=== PATIENT | male | born 1985 | race Hispanic/Latino ===

== ENCOUNTER 2020-06-14 22:46 | Emergency (ER) | payer OTHER, SELFPAY ==
[2020-06-14 22:52] VITALS: BP 154/92; PULSE 93; RESP 16; TEMP 36.6; O2SAT 99; BMI 27.9
[2020-06-14] MEDS: PROPARACAINE 0.5% OPHTH SOL 1 DROPS EYE-LEFT (22:59)
[2020-06-14] MEDS: FLUORESCEIN 1 MG STRIP EYE-BOTH (22:59)
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
[2020-06-14] MEDS: ERYTHROMYCIN OPHTH 1 GM OINT 1 APPLIC EYE-LEFT (23:37)
== END 2020-06-14 23:40 | disposition home or self-care (01) ==
PROVIDERS: Emergency Provider Emergency Medicine
DX: S05.02XA Injury of conjunctiva and corneal abrasion without foreign body, left eye, initial encounter (principal)
CPT/HCPCS: 99282

== ENCOUNTER 2021-07-13 15:51 | Emergency (ER) | payer OTHER, SELFPAY ==
[2021-07-13 16:08] VITALS: BP 131/74; PULSE 71; RESP 18; TEMP 36.3; O2SAT 99; BMI 30.1
[2021-07-13] MEDS: TET,DIPH,PERTUSS(ACELL),VAC/PF 0.5 ML SYRINGE IM (18:13)
[2021-07-13] MEDS: KETOROLAC 30 MG/ML VIAL IM (18:14)
[2021-07-13] MEDS: LIDO 1%/SOD BICARB 8.4% (10ML) 10 ML SYRINGE INJ (18:15)
[2021-07-13] MEDS: cephALEXin 250 MG CAPSULE 500 MG PO (19:09)
[2021-07-13] MEDS: TRAMADOL 50 MG TABLET PO (19:09)
--- NOTE | 2021-07-13 19:22 | ED.SKABFB ---
HPI - Skin/Abscess/Foreign Bdy <VAZQUEZ Parisi - Last Filed: 07/13/21 22:10> General Chief complaint: Skin/Abscess/Foreign Body Stated complaint: inside rt thigh and up pain, possible boil rupture Time Seen by Provider: 07/13/21 17:54 Source: patient Mode of arrival: Ambulatory History of Present Illness HPI narrative: 35-year-old male presents to emergency department for 3 days of right thigh skin lesion which started as an ingrown hair. He reports that it is being getting more swollen and red, started draining earlier today without any intervention, he has taken ibuprofen for this, he is allergic to Tylenol. He does not know when his last tetanus was. He denies any recent fever, nausea or vomiting, weakness, numbness or tingling in the lower extremities. He denies any history of MRSA. Related Data Previous Rx's Medication Instructions Recorded erythromycin 5 mg/gram (0.5 %) eye 1 applictn EYE-LEFT TID #3.5 gram 06/14/20 ointment cephalexin 500 mg capsule 500 mg PO BID 10 Days #20 cap 07/13/21 tramadol 50 mg tablet 50 mg PO BID PRN #10 tab 07/13/21 Allergies Allergy/AdvReac Type Severity Reaction Status Date / Time acetaminophen Allergy Verified 06/14/20 22:52 Review of Systems <VAZQUEZ Parisi - Last Filed: 07/13/21 22:10> Review of Systems Narrative: General: denies fever, chills Head/Neck: denies headache, neck pain Eyes: denies visual changes, eye pain Cardio: denies chest pain, palpitations Respiratory: denies shortness of breath, cough GI: denies abdominal pain, nausea, vomiting, or diarrhea : denies dysuria, hematuria MSK: denies joint pain, muscle weakness Skin: denies rash, itching Neuro: denies numbness, tingling Patient History <VAZQUEZ Parisi - Last Filed: 07/13/21 22:10> Medical History Healthy adult Social History marital status: Smoking Status: Never smoker Smoking Status: Never smoker alcohol intake frequency: a few times a month Alcohol type: beer Substance Use Type: marijuana Exam <VAZQUEZ Parisi - Last Filed: 07/13/21 22:10> Narrative Exam Narrative: Independently reviewed vitals signs and nursing notes. General: Awake, alert, nontoxic, no cardiorespiratory distress Head/Neck: Atraumatic, neck full range of motion Eyes: EOMI, conjunctiva normal Nose: nares patent, no rhinorrhea Mouth/Throat: moist mucus membranes, posterior pharynx normal, no oral lesions Cardio: Regular rate and rhythm, no peripheral edema Respiratory: respirations unlabored without wheezing, stridor, or rales. No retractions. GI: Abdomen soft, nontender MSK: Moves all extremities, neurovascularly intact Skin: Right medial thigh with 2 cm x 2 cm draining abscess Normal capillary refill, no rash Neuro: Normal speech and cognition, normal gait Initial Vital Signs Initial Vital Signs: Vital Signs Temperature 97.4 F L 07/13/21 16:08 Pulse Rate 71 07/13/21 16:08 Respiratory Rate 18 07/13/21 16:08 Blood Pressure 131/74 07/13/21 16:08 Pulse Oximetry 99 07/13/21 16:08 <Joyce Castañeda MD - Last Filed: 07/14/21 07:43> Initial Vital Signs Initial Vital Signs: Vital Signs Temperature 97.4 F L 07/13/21 16:08 Pulse Rate 71 07/13/21 16:08 Respiratory Rate 18 07/13/21 16:08 Blood Pressure 131/74 07/13/21 16:08 Pulse Oximetry 99 07/13/21 16:08 Procedures <VAZQUEZ Parisi - Last Filed: 07/13/21 22:10> Abscess I/D I&D #1: Site: lower extremity Local Anesthetic: lidocaine 1% and with bicarb Amount of anesthesia used (mL): 9 Technique: incised with #11 blade Amount of fluid expressed (mL): 5 Irrigation: Yes Packing used?: plain Course <VAZQUEZ Parisi - Last Filed: 07/13/21 22:10> Orders Ordered: Discontinued Medications Cephalexin HCl (Cephalexin 250 Mg Capsule) 500 mg PO NOW ONE Stop: 07/13/21 18:43 Last Admin: 07/13/21 19:09 Dose: 500 mg Documented by: KANIKA Diphtheria/Tetanus/Acell Pertussis (Tet,Diph,Pertuss(Acell),Vac/Pf 0.5 Ml Syringe) 0.5 ml IM .ONCE ONE Stop: 07/13/21 18:13 Last Admin: 07/13/21 18:13 Dose: 0.5 ml Documented by: KANIKA Ketorolac Tromethamine (Ketorolac 30 Mg/Ml Vial) 30 mg IM NOW ONE Stop: 07/13/21 18:00 Last Admin: 07/13/21 18:14 Dose: 30 mg Documented by: KANIKA Lidocaine/Sodium Bicarbonate (Lido 1%/Sod Bicarb 8.4% (10ml) 10 Ml Syringe) 10 ml INJ NOW ONE Stop: 07/13/21 18:02 Last Admin: 07/13/21 18:15 Dose: 10 ml Documented by: KANIKA Tetanus/Diphtheria Toxoids (Tetanus Diphtheria Toxoids 0.5 Ml Vial) 0.5 ml IM .ONCE ONE Stop: 07/13/21 18:03 Last Admin: 07/13/21 18:33 Dose: Not Given Documented by: KANIKA Tramadol HCl (Tramadol 50 Mg Tablet) 50 mg PO NOW ONE Stop: 07/13/21 18:48 Last Admin: 07/13/21 19:09 Dose: 50 mg Documented by: KANIKA Vital Signs Vital signs: Vital Signs - 8 hr 07/13/21 16:08 Temperature 97.4 F L Pulse Rate 71 Respiratory Rate 18 Blood Pressure 131/74 Pulse Oximetry 99 <Joyce Castañeda MD - Last Filed: 07/14/21 07:43> Orders Ordered: Discontinued Medications Cephalexin HCl (Cephalexin 250 Mg Capsule) 500 mg PO NOW ONE Stop: 07/13/21 18:43 Last Admin: 07/13/21 19:09 Dose: 500 mg Documented by: KANIKA Diphtheria/Tetanus/Acell Pertussis (Tet,Diph,Pertuss(Acell),Vac/Pf 0.5 Ml Syringe) 0.5 ml IM .ONCE ONE Stop: 07/13/21 18:13 Last Admin: 07/13/21 18:13 Dose: 0.5 ml Documented by: KANIKA Ketorolac Tromethamine (Ketorolac 30 Mg/Ml Vial) 30 mg IM NOW ONE Stop: 07/13/21 18:00 Last Admin: 07/13/21 18:14 Dose: 30 mg Documented by: KANIKA Lidocaine/Sodium Bicarbonate (Lido 1%/Sod Bicarb 8.4% (10ml) 10 Ml Syringe) 10 ml INJ NOW ONE Stop: 07/13/21 18:02 Last Admin: 07/13/21 18:15 Dose: 10 ml Documented by: KANIKA Tetanus/Diphtheria Toxoids (Tetanus Diphtheria Toxoids 0.5 Ml Vial) 0.5 ml IM .ONCE ONE Stop: 07/13/21 18:03 Last Admin: 07/13/21 18:33 Dose: Not Given Documented by: KANIKA Tramadol HCl (Tramadol 50 Mg Tablet) 50 mg PO NOW ONE Stop: 07/13/21 18:48 Last Admin: 07/13/21 19:09 Dose: 50 mg Documented by: KANIKA Vital Signs Vital signs: Vital Signs - 8 hr 07/13/21 16:08 Temperature 97.4 F L Pulse Rate 71 Respiratory Rate 18 Blood Pressure 131/74 Pulse Oximetry 99 MDM - Skin/Abscess/Foreign Bdy <hSakila Wilkinson [facility] - Last Filed: 07/13/21 22:10> [facility] Narrative Medical decision making narrative: 35-year-old male with an already draining abscess and cellulitis of his right upper thigh presents to the emergency department with complaint of 3 days of swelling and pain at the site. Wound was already draining with granulation material coming out, drainage was serosanguinous. Cellulitis present to approximately 3 in surrounding a 1 cm x 1 cm abscess which has an erythematous base, it is also slightly raised. I and D was completed without any obvious purulence drainage. Patient had approximately 5 mL of blood loss, a 1 cm incision was made at the anal verge where the 4 mm x 4 mm opening in the abscess was located. Wound was packed with approximately 6 in of plain packing material. Patient educated on changing dressings, warm compresses, taking antibiotics, and having the packing removed in 2 days. Tetanus was updated today, wound culture was sent with granulation material. Patient is appropriate and amenable to discharge home. Vital signs are stable on repeat examination is unremarkable. Patient has been informed of results. Patient has been given strict return to ER precautions for any new or worsening symptoms. Patient understands to follow up closely with outpatient providers as instructed. Patient understands plan and agrees to discharge home. All questions and concerns answered at this time. Discharge Plan Departure Patient Disposition: Home Clinical Impression: Cellulitis Qualifiers: Site of cellulitis: extremity Site of cellulitis of extremity: upper extremity Laterality: right Qualified Code(s): L03.113 - Cellulitis of right upper limb Abscess of skin or subcutaneous tissue Qualifiers: Site of cutaneous abscess: extremity Site of cutaneous abscess of extremity: lower extremity Laterality: right Qualified Code(s): L02.415 - Cutaneous abscess of right lower limb Instructions: DI for Cellulitis -- Adult, DI for Wound Infection, DI for Skin Abscess Activity Restrictions/Additional Instructions: *You have been diagnosed with cellulitis of your right thigh with possible abscess. We placed approximately 6 in packing into your to act as a week. Please continue the warm compresses 4 times a day and return to the emergency department or the walk-in clinic if this starts getting any worse or if you have a fever. You received your 1st dose of antibiotics here, picking tech the rest of your prescription tomorrow. I feel like this should start to resolve now that has a drainage path. You need might need further debridement and drainage if this does not start to get better. *What to do: *Please continue to take your regular medications as directed. [ x] New medication prescriptions sent to your pharmacy: [[facility] ] [ ] New medication written as a paper prescription [ ] No new medications given *Please follow up with your primary care provider in 2-3 days, call for an appointment. Let them know you were seen in the Emergency Department and that we ask that you be seen in follow up. We will electronically transmit a record of today's note if your PCP is in our system *If you do not have a primary care provider please contact the [facility] Resource line at [phone]. They will ask some questions about your medical history and help get you set up with a doctor in the community. *Return to Emergency Department if you should have any new, worsening or concerning symptoms, such as [fever greater than 101F, chills, worsening pain, persistent vomiting or other bothersome symptoms] Prescriptions: New cephalexin 500 mg capsule 500 mg PO BID 10 Days Qty: 20 RF: 0 tramadol 50 mg tablet 50 mg PO BID PRN (Reason: pain) Qty: 10 RF: 0 No Action erythromycin 5 mg/gram (0.5 %) ointment 1 applictn EYE-LEFT TID Qty: 3.5 RF: 0 Stand Alone Forms: Work Release Note <Joyce Castañeda MD - Last Filed: 07/14/21 07:43> Cosign ED Attending Cosignature Attestation: I was immediately available in the department for consultation throughout this patient's visit. I agree with documentation as above. Joyce Castañeda MD
== END 2021-07-13 19:25 | disposition home or self-care (01) ==
PROVIDERS: Emergency Provider Nurse Practitioner Critical Care Medicine
DX: L03.113 Cellulitis of right upper limb (principal); L02.415 Cutaneous abscess of right lower limb; Z23 Encounter for immunization
CPT/HCPCS: 10060; 87070; 87075; 87077; 87147; 87186; 87205; 90471; 96372; 99283; 99284; 90715; J1885

== ENCOUNTER 2021-07-16 17:00 | Emergency (ER) | payer OTHER, SELFPAY ==
[2021-07-16 17:11] VITALS: BP 142/92; PULSE 71; RESP 18; TEMP 36.2; O2SAT 97; BMI 30.8
--- NOTE | 2021-07-16 18:10 | ED_ITS ---
HPI - Extremity Problem General Chief complaint: Extremity Problem,Nontraumatic Stated complaint: RIGHT LEG NEEDS CLEANED Time Seen by Provider: 07/16/21 18:07 Source: patient and family Mode of arrival: Ambulatory Limitations: no limitations History of Present Illness HPI Narrative: 35-year-old male smoker returns with a significant other and the chief complaint of needing his bandage is redressed. He had been seen and evaluated in the emergency department a few days ago and had developed a painful red bump in his medial thigh that started as a an ingrown hair and developed into what sounds like an abscess. There was an incision and drainage with minimal fluid production. It was cultured, he was started on Keflex and it was packed. He is doing quite well in the aftermath and states the pain has improv ed. He denies any systemic findings such as fever, chills nor nausea or vomiting Related Data Previous Rx's Medication Instructions Recorded erythromycin 5 mg/gram (0.5 %) eye 1 applictn EYE-LEFT TID #3.5 gram 06/14/20 ointment cephalexin 500 mg capsule 500 mg PO BID 10 Days #20 cap 07/13/21 tramadol 50 mg tablet 50 mg PO BID PRN #10 tab 07/13/21 sulfamethoxazole 800 1 tab PO BID 10 Days #20 tab 07/16/21 mg-trimethoprim 160 mg tablet (Bactrim DS) Allergies Allergy/AdvReac Type Severity Reaction Status Date / Time acetaminophen Allergy Verified 06/14/20 22:52 Review of Systems Review of Systems Narrative: GENERAL: Denies chills, fatigue, malaise, fever, sweats. HEENT: Denies sinus pain, ear pain, sore throat, difficulty swallowing, dizziness. RESPIRATORY: Denies dyspnea, cough, wheezing, hemoptysis, sputum. CARDIOVASCULAR: Denies chest pain, palpitations, orthopnea, edema, GASTROINTESTINAL: Denies nausea, vomiting, abdominal pain, diarrhea, constipation, melena. : Denies dysuria, frequency, incontinence, hematuria, urinary retention. MUSCULOSKELETAL: denies weakness, joint pain, or bony pain SKIN:see HPI NEUROLOGIC: Denies weakness, headache, numbness, change in speech, confusion, seizures, incoordination. PSYCHIATRIC: No concerning psychosocial issues. 12 point review of systems is negative except for those stated above Patient History Medical History Healthy adult Social History marital status: Smoking Status: Current some day smoker Smoking Status: Current some day smoker tobacco type: vaping alcohol intake frequency: a few times a month Alcohol type: beer Substance Use Type: does not use Exam Narrative Exam Narrative: GEN: AOx3 and in mild distress EYES: Pupils are equal, round, and reactive to light and accommodation. Extraoccular muscles are intact bilaterally. There is no subconjunctival hemorrhage or exudate. CHEST: Lungs are clear to auscultation bilaterally and free of wheezes, rales, or rhonchi. Heart rate is regular rhythm, there are no murmurs, clicks, rubs, or gallops. There is no chest wall tenderness. ABD: Abdomen is soft and nontender. There is no guarding or rebound. Bowel sounds are normal in all 4 quadrants. There is no mass or organomegaly. EXT: Full painless ROM of all extremities with no loss of sensation or strength. SKIN: 0.5 cm open wound, packing easily removed, minimal surrounding erythema or induration. Improving per patient. Otherwise,Warm, pink, and dry. No erythema or rash Initial Vital Signs Initial Vital Signs: Vital Signs Temperature 97.1 F L 07/16/21 17:11 Pulse Rate 71 07/16/21 17:11 Respiratory Rate 18 07/16/21 17:11 Blood Pressure 142/92 H 07/16/21 17:11 Pulse Oximetry 97 07/16/21 17:11 Course Orders Ordered: Discontinued Medications Doxycycline Hyclate (Doxycycline Hyclate 100 Mg Tablet) 100 mg PO NOW ONE Stop: 07/16/21 18:31 Last Admin: 07/16/21 18:42 Dose: 100 mg Documented by: LAURA Vital Signs Vital signs: Vital Signs - 8 hr 07/16/21 17:11 Temperature 97.1 F L Pulse Rate 71 Respiratory Rate 18 Blood Pressure 142/92 H Pulse Oximetry 97 MDM - Extremity (Nontraumatic) MDM Narrative Medical decision making narrative: Marked improvement of right thigh abscess. No indication to repack. Wound culture consulted in notes MRSA, will stop Keflex and start patient on Bactrim. Return precautions given and questions answered to his apparent satisfaction Discharge Plan Departure Patient Disposition: Home Clinical Impression: Abscess of skin or subcutaneous tissue Qualifiers: Site of cutaneous abscess: extremity Site of cutaneous abscess of extremity: lower extremity Laterality: right Qualified Code(s): L02.415 - Cutaneous abscess of right lower limb Instructions: DI for Wound Infection Activity Restrictions/Additional Instructions: *You have been diagnosed with [right medial thigh superficial abscess, recheck. *What to do: * your culture suggest the antibiotic you are on is not likely to work. Please stop taking what you have been prescribed and initiate the new antibiotic as prescribed [X] New medication prescriptions sent to your pharmacy: [ [facility]] [ ] New medication written as a paper prescription [ ] No new medications given *Please follow up with your primary care provider in 2-3 days, call for an appointment. Let them know you were seen in the Emergency Department and that we ask that you be seen in follow up. We will electronically transmit a record of today's note if your PCP is in our system *If you do not have a primary care provider please contact the [facility] Resource line at [phone]. They will ask some questions about your medical history and help get you set up with a doctor in the community. *Return to Emergency Department if you should have any new, worsening or concerning symptoms, such as [fever greater than 101 F, shaking chills, worsening pain, persistent vomiting or other bothersome symptoms] Prescriptions: New sulfamethoxazole-trimethoprim [Bactrim DS] 800-160 mg tablet 1 tab PO BID 10 Days Qty: 20 RF: 0 No Action erythromycin 5 mg/gram (0.5 %) ointment 1 applictn EYE-LEFT TID Qty: 3.5 RF: 0 cephalexin 500 mg capsule 500 mg PO BID 10 Days Qty: 20 RF: 0 tramadol 50 mg tablet 50 mg PO BID PRN (Reason: pain) Qty: 10 RF: 0
[2021-07-16] MEDS: DOXYCYCLINE HYCLATE 100 MG TABLET PO (18:42)
[2021-07-16 18:43] VITALS: BP 145/75; PULSE 74; RESP 16; O2SAT 99
--- NOTE | 2021-07-16 18:47 | PC.NURSE ---
Packing removed, wound dressed. Abx changed. Pt communicates understanding of new scripts, wound care, and DC plan. Ambulatory to exit.
== END 2021-07-16 18:48 | disposition home or self-care (01) ==
PROVIDERS: Emergency Provider Emergency Medicine
DX: L02.415 Cutaneous abscess of right lower limb (principal); B95.62 Methicillin resistant Staphylococcus aureus infection as the cause of diseases classified elsewhere
CPT/HCPCS: 99283

== ENCOUNTER 2021-09-01 20:49 | Emergency (ER) | payer OTHER, SELFPAY ==
[2021-09-01 21:15] VITALS: BP 143/84; PULSE 76; RESP 20; TEMP 36.6; O2SAT 99
--- NOTE | 2021-09-01 22:17 | ED_ITS ---
HPI - Skin/Abscess/Foreign Bdy General Chief complaint: Skin/Abscess/Foreign Body Stated complaint: OPEN PIMPLE RIGHT THIGH Time Seen by Provider: 09/01/21 21:56 Source: patient Mode of arrival: Ambulatory Limitations: no limitations History of Present Illness HPI narrative: ?35-year-old male smoker returns with a significant other and the chief complaint?of a painful red lump in his right medial thigh consistent with prior abscesses. He states it has been there for just a few days and he came in a bit earlier this time because it caused him such trouble last time. He denies systemic findings such as fever, chills nor nausea or vomiting. He states that he was able to get some pus out of it earlier and has continued to drain a bit. He states it is very tender to even light palpation and is worse when he walks or touches it. He denies any trouble bowel movements or urinating. Related Data Previous Rx's Medication Instructions Recorded erythromycin 5 mg/gram (0.5 %) eye 1 applictn EYE-LEFT TID #3.5 gram 06/14/20 ointment tramadol 50 mg tablet 50 mg PO BID PRN #10 tab 07/13/21 doxycycline hyclate 100 mg tablet 100 mg PO BID #20 tab 09/01/21 oxycodone 5 mg tablet 5 mg PO Q4-6H PRN #10 tab 09/01/21 Allergies Allergy/AdvReac Type Severity Reaction Status Date / Time acetaminophen Allergy Verified 06/14/20 22:52 Review of Systems Review of Systems Narrative: GENERAL: Denies chills, fatigue, malaise, fever, sweats. HEENT: Denies sinus pain, ear pain, sore throat, difficulty swallowing, dizziness. RESPIRATORY: Denies dyspnea, cough, wheezing, hemoptysis, sputum. CARDIOVASCULAR: Denies chest pain, palpitations, orthopnea, edema, GASTROINTESTINAL: Denies nausea, vomiting, abdominal pain, diarrhea, constipation, melena. : Denies dysuria, frequency, incontinence, hematuria, urinary retention. MUSCULOSKELETAL: denies weakness, joint pain, or bony pain SKIN: See HPI NEUROLOGIC: Denies weakness, headache, numbness, change in speech, confusion, seizures, incoordination. PSYCHIATRIC: No concerning psychosocial issues. 12 point review of systems is negative except for those stated above Patient History Medical History Healthy adult Social History marital status: Smoking Status: Current some day smoker Smoking Status: Current some day smoker tobacco type: vaping alcohol intake frequency: a few times a month Alcohol type: beer Substance Use Type: does not use Exam Initial Vital Signs Initial Vital Signs: Vital Signs Temperature 98 F 09/01/21 21:15 Pulse Rate 76 09/01/21 21:15 Respiratory Rate 20 09/01/21 21:15 Blood Pressure 143/84 H 09/01/21 21:15 Pulse Oximetry 99 09/01/21 21:15 Procedures Abscess I/D I&D #1: Site: lower extremity Side (if applicable): right Local Anesthetic: lidocaine 1% and with bicarb Amount of anesthesia used (mL): 4 Technique: incised with #11 blade Amount of fluid expressed (mL): 3 Irrigation: No Packing used?: none Complications: pain Course Orders Ordered: ED Orders 09/01/21 21:30 Wound Culture and Gram Stain Stat Discontinued Medications Doxycycline Hyclate (Doxycycline Hyclate 100 Mg Tablet) 100 mg PO NOW ONE Stop: 09/01/21 22:47 Last Admin: 09/01/21 22:51 Dose: 100 mg Documented by: SUSANNE Lidocaine/Sodium Bicarbonate (Lido 1%/Sod Bicarb 8.4% (10ml) 10 Ml Syringe) 10 ml INJ NOW ONE Stop: 09/01/21 22:47 Last Admin: 09/01/21 22:51 Dose: 10 ml Documented by: SUSANNE Oxycodone HCl (Oxycodone Ir 5 Mg Tablet) 5 mg PO NOW ONE Stop: 09/01/21 22:47 Last Admin: 09/01/21 22:51 Dose: 5 mg Documented by: SUSANNE Vital Signs Vital signs: Vital Signs - 8 hr 09/01/21 21:15 Temperature 98 F Pulse Rate 76 Respiratory Rate 20 Blood Pressure 143/84 H Pulse Oximetry 99 Discharge Plan Departure Patient Disposition: Home Clinical Impression: Abscess of skin or subcutaneous tissue Instructions: DI for Skin Abscess Activity Restrictions/Additional Instructions: *You have been diagnosed with [cutaneous abscess right medial thigh *What to do: *Please continue to take your regular medications as directed. [ x] New medication prescriptions sent to your pharmacy: [ [facility]] [ ] New medication written as a paper prescription [ ] No new medications given *Please follow up with your primary care provider in 2-3 days, call for an appointment. Let them know you were seen in the Emergency Department and that we ask that you be seen in follow up. We will electronically transmit a record of today's note if your PCP is in our system *If you do not have a primary care provider please contact the [facility] Resource line at [phone]. They will ask some questions about your medical history and help get you set up with a doctor in the community. *Return to Emergency Department if you should have any new, worsening or concerning symptoms, such as [fever greater than 101 F, shaking chills, worsening pain, persistent vomiting or other bothersome symptoms] Prescriptions: New doxycycline hyclate 100 mg tablet 100 mg PO BID Qty: 20 0RF oxycodone 5 mg tablet 5 mg PO Q4-6H PRN (Reason: pain) Qty: 10 0RF No Action erythromycin 5 mg/gram (0.5 %) ointment 1 applictn EYE-LEFT TID Qty: 3.5 0RF tramadol 50 mg tablet 50 mg PO BID PRN (Reason: pain) Qty: 10 0RF
[2021-09-01] MEDS: DOXYCYCLINE HYCLATE 100 MG TABLET PO (22:51)
[2021-09-01] MEDS: OXYCODONE IR 5 MG TABLET PO (22:51)
[2021-09-01] MEDS: LIDO 1%/SOD BICARB 8.4% (10ML) 10 ML SYRINGE INJ (22:51)
== END 2021-09-01 23:55 | disposition home or self-care (01) ==
PROVIDERS: Emergency Provider Emergency Medicine
DX: L02.415 Cutaneous abscess of right lower limb (principal)
CPT/HCPCS: 10060; 87070; 87075; 87077; 87147; 87186; 87205; 99283

== ENCOUNTER 2022-10-11 22:29 | Emergency (ER) | payer OTHER, SELFPAY ==
--- NOTE | 2022-10-11 22:44 | DI.RAD.S_ITS ---
PROCEDURE: XR FOOT RT MIN 3V INDICATIONS: foot injury TECHNIQUE: 3 views of the foot were acquired. COMPARISON: None. FINDINGS: Bones: No fractures or dislocations. There is mild degeneration at the 1st metatarsophalangeal joint. No suspicious bony lesions. Soft tissues: No tibiotalar joint effusion. Achilles tendon appears normal. IMPRESSION: 1. No fracture or dislocation. Dictated by: Jack Stephen M.D. on 10/11/2022 at 23:34 Approved by: Jack Stephen M.D. on 10/11/2022 at 23:35
[2022-10-11 22:46] VITALS: BP 129/92; PULSE 75; RESP 16; TEMP 36.8; O2SAT 99; BMI 27.2
[2022-10-11] MEDS: OXYCODONE IR 5 MG TABLET 10 MG PO (23:46)
--- NOTE | 2022-10-12 00:42 | ED.LOWEXIN ---
HPI - Extremity Injury (Lower) General Chief Complaint: Extremity Injury, Lower Stated Complaint: Hurt toe Time Seen by Provider: 10/11/22 23:18 Source: patient Mode of arrival: Wheelchair Limitations: no limitations History of Present Illness HPI Narrative: This is a with history of tobacco abuse who returns for complaint of pain on his right foot. Patient states he dropped a 45 pound barbell on his foot. He states it landed directly on his 1st metatarsal phalangeal joint which he states chronically has deformity from being injured when he was much younger. States this deformity is present on both feet. Patient states he is quite a bit of pain over the site, pain with weight-bearing. Denies injury elsewhere. No loss of sensation. Patient denies any surgery on his feet. He states he is allergic to Tylenol he gets rash, swelling and airway symptoms. Patient does use tobacco, occasional alcohol, denies illicit. Primary care is through [facility]. Related Data Previous Rx's Medication Instructions Recorded erythromycin 5 mg/gram (0.5 %) eye 1 applictn EYE-LEFT TID #3.5 grams 06/14/20 ointment tramadol 50 mg tablet 50 mg PO BID PRN pain #10 tabs 07/13/21 doxycycline hyclate 100 mg tablet 100 mg PO BID #20 tabs 09/01/21 oxycodone 5 mg tablet 5 mg PO Q4-6H PRN pain #10 tabs 09/01/21 ibuprofen 600 mg tablet 600 mg PO QID PRN pain #30 tabs 10/12/22 Allergies Allergy/AdvReac Type Severity Reaction Status Date / Time acetaminophen Allergy Verified 06/14/20 22:52 Review of Systems Review of Systems ROS Unobtainable: All systems reviewed & are unremarkable except as noted in HPI and below Patient History Medical History Healthy adult Social History marital status: Smoking Status: Current some day smoker Smoking Status: Current some day smoker tobacco type: vaping alcohol intake frequency: a few times a month Alcohol type: beer Substance Use Type: does not use Exam Narrative Exam Narrative: GENERAL: Alert and oriented x three, male in moderate distress. HEENT: Head normocephalic, atraumatic, EOMI, pupils reactive, face symmetric, moist mucous membranes NECK: Supple, full range of motion EXTREMITIES: Normal range of motion, no clubbing. Patient has mild edema over the 1st metatarsophalangeal joint. He has deformity of the joint but indicates that this is somewhat normal. He states it is present bilaterally. He does have tenderness directly over the joint. He is nontender elsewhere on bony examine his toes, foot, ankle and lower extremity. Neurovascularly intact. Skin is intact. Cap refill less than 2 seconds in all 5 toes. Sensation intact throughout all 5 toes and throughout the foot. NEUROLOGICAL: Cranial nerves II through XII grossly intact. Moving all extremities SKIN: Warm, dry, no petechiae, no rashes or lesions, no hematoma or ecchymosis Initial Vital Signs Initial Vital Signs: Vital Signs Temperature 98.2 F 10/11/22 22:46 Pulse Rate 75 10/11/22 22:46 Respiratory Rate 16 10/11/22 22:46 Blood Pressure 129/92 H 10/11/22 22:46 Pulse Oximetry 99 10/11/22 22:46 Oxygen Delivery Method 10/11/22 22:46 Course Orders Ordered: ED Orders 10/11/22 22:44 XR foot RT min 3V Stat Discontinued Medications Oxycodone HCl (Oxycodone Ir 5 Mg Tablet) 10 mg PO NOW ONE Stop: 10/11/22 23:22 Last Admin: 10/11/22 23:46 Dose: 10 mg Documented By: BISI Vital Signs Vital signs: Vital Signs - 8 hr 10/11/22 22:46 10/12/22 01:50 Temperature 98.2 F Pulse Rate 75 76 Respiratory Rate 16 16 Blood Pressure 129/92 H 112/56 L Pulse Oximetry 99 98 Oxygen Delivery Method Room Air Room Air MDM - Extremity Injury (Lower) Imaging Data Extremity x-ray #1: Radiologist's Impression: Foot x-ray three views, no fracture or dislocation there is mild degeneration of the 1st metatarsophalangeal joint. No suspicious bony lesions. No tibiotalar joint effusion. Achilles tendon appears normal. [facility] Narrative Medical decision making narrative: This is a 37-year-old male with normal present deformity to his 1st metatarsal joint which is likely his normal anatomy patient dropped 45 lb barbell. He has point tenderness over the joint itself. No obvious fractures appreciated. Patient placed in ortho shoe, crutches for toe-touch weight-bearing and recommended follow-up in 7-10 days for recheck and repeat imaging if persistent symptoms. We discussed if symptoms completely resolve he can ambulate normally. Ibuprofen as needed for pain. We discussed return precautions all questions answered. Discharge Plan Departure Patient Disposition: Home Clinical Impression: Contusion of foot Activity Restrictions/Additional Instructions: Please follow-up with the next 7-10 days for recheck if your symptoms have not resolve for repeat evaluation and possibly repeat imaging. Your x-ray imaging today does not show any fracture or dislocation there is some mild degenerative change at the 1st metatarsophalangeal joint Wear ortho shoe until symptoms have resolved or you have been seen in follow-up. Use crutches as toe-touch weight-bearing unless your pain has resolved and her able to walk normally. You may take ibuprofen up to 600 mg every 6 hours as needed. Prescription sent to [facility] Splint Care: Keep splint clean and dry. Elevated affected body part to decrease swelling. OK to use ice pack on the affected body part. Use for 15-20 minutes each time, for 5-6x per day. If you develop worsening pain, numbness, tingling, discoloration of the affected body part, loosen the splint by loosening the STEPHANIE wrap, and either see your doctor for an urgent re-assessment, or return to the Emergency Department. Return to the Emergency Department for any new or worsening symptoms. Prescriptions: New ibuprofen 600 mg tablet 600 mg PO QID PRN (Reason: pain) Qty: 30 0RF No Action erythromycin 5 mg/gram (0.5 %) ointment 1 applictn EYE-LEFT TID Qty: 3.5 0RF tramadol 50 mg tablet 50 mg PO BID PRN (Reason: pain) Qty: 10 0RF doxycycline hyclate 100 mg tablet 100 mg PO BID Qty: 20 0RF oxycodone 5 mg tablet 5 mg PO Q4-6H PRN (Reason: pain) Qty: 10 0RF Referrals: [facility] [Primary Care Provider] - Stand Alone Forms: Patient Portal/API, Work Release Note
[2022-10-12 01:50] VITALS: BP 112/56; PULSE 76; RESP 16; O2SAT 98
== END 2022-10-12 01:59 | disposition home or self-care (01) ==
PROVIDERS: Emergency Provider Emergency Medicine
DX: S90.31XA Contusion of right foot, initial encounter (principal); W22.8XXA Striking against or struck by other objects, initial encounter
CPT/HCPCS: 73630; 99283